=== PATIENT | male | born 1930 | race Caucasian/White ===

== ENCOUNTER 2017-11-30 11:11 | Inpatient (IN) | payer MEDICARE, OTHER ==
[~2017-11-30] VITALS: Ht 172.7 cm; Wt 85.0 kg
[2017-11-30] MEDS ORDERED: VANCOMYCIN 1 G PREMIX 200 ML IV SCH (12:00)
[2017-11-30] MEDS ORDERED: PIPERACILLIN/TAZ 3.375G PREMIX 50 ML IV ONE (12:00)
[2017-11-30] MEDS ORDERED: FUROSEMIDE 40MG/4ML VIAL IVP ONE (12:00)
[2017-11-30] MEDS ORDERED: DOCUSATE SODIUM 100MG CAPSULE PO PRN (12:15)
[2017-11-30] MEDS ORDERED: CLONIDINE 0.1MG TABLET PO PRN (12:15)
[2017-11-30] MEDS ORDERED: ONDANSETRON HCL 4MG/2ML VIAL IV PRN (12:15)
[2017-11-30] MEDS ORDERED: ACETAMINOPHEN 325MG TABLET PO PRN (12:15)
[2017-11-30 12:27] LABS: HEMATOCRIT. 35.6 % (42.0-52.0); HEMOGLOBIN. 11.5 g/dL (14.0-18.0); MEAN CORPUSCULAR HEMOGLOBIN 30.1 pg (28.0-32.0); MEAN CORPUSCULAR VOLUME 92.6 fL (80.0-94.0); MEAN PLATELET VOLUME 9.5 fl (7.4-10.4); PLATELET 105 x1000/uL (130-400); RED BLOOD CELL COUNT 3.84 mill/uL (4.7-6.1); RED CELL DISTRIBUTION WIDTH 16.8 % (11.6-14.6)
[2017-11-30] MEDS ORDERED: TRAMADOL 50MG TABLET PO ONE (12:30)
[2017-11-30 12:33] LABS: CHLORIDE 98 mEq/L (98-107)
[2017-11-30 12:34] LABS: INR 1.4; PARTIAL THROMBOPLASTIN TIME 26.6 sec (23.4-31.0); PROTHROMBIN TIME 14.8 sec (9.4-11.6)
[2017-11-30 12:54] LABS: CREATINE KINASE MB FRACTION 0.9 ng/mL (0.5-3.6)
[2017-11-30 13:07] LABS: PLATELET ESTIMATE SLIGHTLY DECREASED
[2017-11-30 16:40] VITALS: BP 117/76
[2017-11-30] MEDS ORDERED: MORPHINE SULFATE 4 MG/ML CPJ (NOT FOR IM USE) IV PRN (17:32)
[2017-11-30] MEDS: ENOXAPARIN 40MG/0.4ML SYR SUBCUT SCH (19:06)
[2017-11-30] MEDS: FUROSEMIDE 40MG/4ML VIAL IV SCH (19:06)
[2017-11-30] MEDS ORDERED: ASPI-1159 MT (19:16)
[2017-11-30] MEDS ORDERED: FURO-151 MT (19:16)
[2017-11-30] MEDS ORDERED: CARB-32 MT (19:16)
[2017-11-30] MEDS ORDERED: [UNRECOGNIZED DRUG - OTHER] MT SCH (19:30)
[2017-11-30] MEDS ORDERED: CARBIDOPA MT SCH (19:30)
[2017-11-30] MEDS ORDERED: LEVODOPA MT SCH (19:30)
[2017-11-30 20:00] VITALS: BP 111/64
[2017-11-30] MEDS: CARBIDOPA/LEVODOPA 25/100MG TABLET CR PO SCH (22:05)
[2017-11-30] MEDS: PIPERACILLIN/TAZ 3.375G PREMIX 50 ML IV SCH (22:05)
[2017-11-30 22:45] VITALS: BP 111/64
[2017-12-01] VITALS: BP 97/49
[2017-12-01 04:00] VITALS: BP 103/52
[2017-12-01] MEDS: PIPERACILLIN/TAZ 3.375G PREMIX 50 ML IV SCH ×2 (05:15→13:17)
[2017-12-01 05:31] LABS: CLARITY URINE CLEAR (CLEAR); COLOR URINE YELLOW (YELLOW); KETONES URINE NEGATIVE (NEGATIVE); LEUKOCYTE ESTERASE URINE NEGATIVE (NEGATIVE); NITRITE URINE NEGATIVE (NEGATIVE); OCCULT BLOOD URINE NEGATIVE (NEGATIVE); PROTEIN URINE NEGATIVE (NEGATIVE); SPECIFIC GRAVITY URINE 1.012 (1.005-1.030)
[2017-12-01 06:06] LABS: BASOPHILS % 0.4 % (0.0-2.0); EOSINOPHILS % 2.2 % (0.0-5.0); HEMATOCRIT. 34.4 % (42.0-52.0); HEMOGLOBIN. 11.3 g/dL (14.0-18.0); LYMPHOCYTES % 8.3 % (20.0-50.0); MEAN CORPUSCULAR HEMOGLOBIN 30.5 pg (28.0-32.0); MEAN CORPUSCULAR VOLUME 93.3 fL (80.0-94.0); MEAN PLATELET VOLUME 9.5 fl (7.4-10.4); MONOCYTES % 6.8 % (2.0-8.0); NEUTROPHILS % 82.3 % (40.0-76.0); PLATELET 93 x1000/uL (130-400); RED BLOOD CELL COUNT 3.68 mill/uL (4.7-6.1); RED CELL DISTRIBUTION WIDTH 16.7 % (11.6-14.6)
[2017-12-01 06:19] LABS: CHLORIDE 99 mEq/L (98-107)
[2017-12-01] MEDS: CARBIDOPA/LEVODOPA 25/100MG TABLET CR PO SCH ×3 (06:29→22:03)
[2017-12-01] MEDS ORDERED: VANCOMYCIN 750 MG PREMIX 150 ML IV SCH (07:00)
[2017-12-01 08:00] VITALS: BP 110/65
[2017-12-01] MEDS: IPRATROPIUM/ALBUTEROL 0.5-3(2.5)MG/3ML NEB INH SCH ×3 (09:16→19:58)
[2017-12-01] MEDS: POTASSIUM CHLORIDE 20MEQ/PACKET PO SCH ×2 (09:31→17:31)
[2017-12-01] MEDS: FUROSEMIDE 40MG/4ML VIAL IV SCH ×2 (09:31→17:31)
[2017-12-01 12:00] VITALS: BP 100/58
[2017-12-01 16:00] VITALS: BP 94/51
[2017-12-01] MEDS: CEFTRIAXONE 1 G PREMIX 50 ML IV SCH (16:00)
[2017-12-01] MEDS: ENOXAPARIN 40MG/0.4ML SYR SUBCUT SCH (17:31)
[2017-12-01 20:00] VITALS: BP 111/73
[2017-12-01] MEDS ORDERED: PIPERACILLIN/TAZ 3.375G PREMIX 50 ML IV SCH (22:00)
[2017-12-01] MEDS: VANCOMYCIN 1 G PREMIX 200 ML IV SCH (22:03)
[2017-12-02] VITALS: BP 99/63
[2017-12-02] MEDS ORDERED: VANCOMYCIN 750 MG PREMIX 150 ML IV SCH (01:00)
[2017-12-02] MEDS: IPRATROPIUM/ALBUTEROL 0.5-3(2.5)MG/3ML NEB INH SCH ×3 (02:10→20:51)
[2017-12-02 04:00] VITALS: BP 97/67
[2017-12-02] MEDS: CARBIDOPA/LEVODOPA 25/100MG TABLET CR PO SCH ×2 (05:30→14:29)
[2017-12-02 07:08] LABS: BASOPHILS % 0.4 % (0.0-2.0); EOSINOPHILS % 3.2 % (0.0-5.0); HEMATOCRIT. 32.9 % (42.0-52.0); HEMOGLOBIN. 10.9 g/dL (14.0-18.0); LYMPHOCYTES % 7.4 % (20.0-50.0); MEAN CORPUSCULAR HEMOGLOBIN 30.5 pg (28.0-32.0); MEAN CORPUSCULAR VOLUME 91.8 fL (80.0-94.0); MEAN PLATELET VOLUME 9.7 fl (7.4-10.4); MONOCYTES % 9.4 % (2.0-8.0); NEUTROPHILS % 79.6 % (40.0-76.0); PLATELET 97 x1000/uL (130-400); RED BLOOD CELL COUNT 3.58 mill/uL (4.7-6.1); RED CELL DISTRIBUTION WIDTH 16.5 % (11.6-14.6)
[2017-12-02 08:00] VITALS: BP 100/66
[2017-12-02] MEDS: POTASSIUM CHLORIDE 20MEQ/PACKET PO SCH ×2 (09:04→17:06)
[2017-12-02] MEDS: FUROSEMIDE 40MG/4ML VIAL IV SCH ×2 (09:04→17:06)
[2017-12-02 12:00] VITALS: BP 101/66
[2017-12-02] MEDS: CEFTRIAXONE 1 G PREMIX 50 ML IV SCH (15:54)
[2017-12-02 16:00] VITALS: BP 95/59
[2017-12-02] MEDS: ASCORBIC ACID 250 MG TABLET PO SCH (17:06)
[2017-12-02] MEDS: ENOXAPARIN 40MG/0.4ML SYR SUBCUT SCH (17:07)
[2017-12-02 20:00] VITALS: BP 130/70
[2017-12-03] VITALS: BP 146/66
[2017-12-03] MEDS: CARBIDOPA/LEVODOPA 25/100MG TABLET CR PO SCH ×4 (00:31→21:10)
[2017-12-03] MEDS: VANCOMYCIN 1 G PREMIX 200 ML IV SCH ×2 (00:31→21:09)
[2017-12-03] MEDS: IPRATROPIUM/ALBUTEROL 0.5-3(2.5)MG/3ML NEB INH SCH ×4 (02:18→22:04)
[2017-12-03 04:00] VITALS: BP 138/57
[2017-12-03 08:00] VITALS: BP 107/64
[2017-12-03] MEDS: FUROSEMIDE 40MG/4ML VIAL IV SCH ×2 (08:59→17:25)
[2017-12-03] MEDS: POTASSIUM CHLORIDE 20MEQ/PACKET PO SCH (08:59)
[2017-12-03] MEDS: ZINC SULFATE 220 MG ( 50 ) CAPSULE PO SCH (09:00)
[2017-12-03] MEDS: ASCORBIC ACID 250 MG TABLET PO SCH ×2 (09:00→17:25)
[2017-12-03] MEDS: MULTIVITAMINS,THER W-MINERALS TABLET PO SCH (09:00)
[2017-12-03 12:00] VITALS: BP 114/68
[2017-12-03] MEDS: CEFTRIAXONE 1 G PREMIX 50 ML IV SCH (15:30)
[2017-12-03 16:00] VITALS: BP 113/70
[2017-12-03] MEDS: ENOXAPARIN 40MG/0.4ML SYR SUBCUT SCH (17:26)
[2017-12-03 20:00] VITALS: BP 106/62
[2017-12-04] VITALS: BP 101/50
[2017-12-04] MEDS: IPRATROPIUM/ALBUTEROL 0.5-3(2.5)MG/3ML NEB INH SCH ×4 (02:32→21:09)
[2017-12-04 04:00] VITALS: BP 107/67
[2017-12-04 05:35] LABS: BASOPHILS % 0.9 % (0.0-2.0); EOSINOPHILS % 4.2 % (0.0-5.0); HEMATOCRIT. 34.5 % (42.0-52.0); HEMOGLOBIN. 11.3 g/dL (14.0-18.0); LYMPHOCYTES % 10.2 % (20.0-50.0); MEAN CORPUSCULAR HEMOGLOBIN 30.3 pg (28.0-32.0); MEAN CORPUSCULAR VOLUME 92.7 fL (80.0-94.0); MEAN PLATELET VOLUME 9.3 fl (7.4-10.4); NEUTROPHILS % 74.7 % (40.0-76.0); PLATELET 124 x1000/uL (130-400); RED BLOOD CELL COUNT 3.72 mill/uL (4.7-6.1); RED CELL DISTRIBUTION WIDTH 16.9 % (11.6-14.6)
[2017-12-04 05:58] LABS: CHLORIDE 99 mEq/L (98-107)
[2017-12-04] MEDS: CARBIDOPA/LEVODOPA 25/100MG TABLET CR PO SCH ×3 (06:01→21:44)
[2017-12-04 08:00] VITALS: BP 107/67
[2017-12-04] MEDS: ZINC SULFATE 220 MG ( 50 ) CAPSULE PO SCH (08:44)
[2017-12-04] MEDS: FUROSEMIDE 40MG/4ML VIAL IV SCH ×2 (08:44→18:23)
[2017-12-04] MEDS: MULTIVITAMINS,THER W-MINERALS TABLET PO SCH (08:44)
[2017-12-04] MEDS: POTASSIUM CHLORIDE 20MEQ/PACKET PO SCH (08:44)
[2017-12-04] MEDS: ASCORBIC ACID 250 MG TABLET PO SCH ×2 (08:45→18:23)
[2017-12-04 12:00] VITALS: BP 95/65
[2017-12-04] MEDS ORDERED: VANCOMYCIN 1 G PREMIX 200 ML IV SCH (15:00)
[2017-12-04 16:00] VITALS: BP 99/58
[2017-12-04] MEDS: ENOXAPARIN 40MG/0.4ML SYR SUBCUT SCH (18:24)
[2017-12-04 20:00] VITALS: BP 116/72
[2017-12-05] VITALS: BP 121/68
[2017-12-05] MEDS: IPRATROPIUM/ALBUTEROL 0.5-3(2.5)MG/3ML NEB INH SCH ×4 (03:04→20:26)
[2017-12-05 04:00] VITALS: BP 118/65
[2017-12-05] MEDS: CARBIDOPA/LEVODOPA 25/100MG TABLET CR PO SCH ×3 (05:35→21:31)
[2017-12-05 05:44] LABS: BASOPHILS % 0.9 % (0.0-2.0); EOSINOPHILS % 3.7 % (0.0-5.0); HEMATOCRIT. 31.1 % (42.0-52.0); HEMOGLOBIN. 10.5 g/dL (14.0-18.0); LYMPHOCYTES % 10.4 % (20.0-50.0); MEAN CORPUSCULAR HEMOGLOBIN 30.7 pg (28.0-32.0); MEAN CORPUSCULAR VOLUME 91.1 fL (80.0-94.0); MEAN PLATELET VOLUME 8.9 fl (7.4-10.4); MONOCYTES % 10.4 % (2.0-8.0); NEUTROPHILS % 74.6 % (40.0-76.0); PLATELET 119 x1000/uL (130-400); RED BLOOD CELL COUNT 3.41 mill/uL (4.7-6.1); RED CELL DISTRIBUTION WIDTH 16.7 % (11.6-14.6)
[2017-12-05 06:17] LABS: CHLORIDE 100 mEq/L (98-107)
[2017-12-05 08:00] VITALS: BP 113/65
[2017-12-05] MEDS: MULTIVITAMINS,THER W-MINERALS TABLET PO SCH (09:48)
[2017-12-05] MEDS: ZINC SULFATE 220 MG ( 50 ) CAPSULE PO SCH (09:48)
[2017-12-05] MEDS: POTASSIUM CHLORIDE 20MEQ/PACKET PO SCH (09:48)
[2017-12-05] MEDS: ASCORBIC ACID 250 MG TABLET PO SCH ×2 (09:48→17:55)
[2017-12-05] MEDS: FUROSEMIDE 40MG/4ML VIAL IV SCH ×2 (09:48→17:55)
[2017-12-05 12:00] VITALS: BP 93/54
[2017-12-05 16:00] VITALS: BP 110/74
[2017-12-05] MEDS: ENOXAPARIN 40MG/0.4ML SYR SUBCUT SCH (17:56)
[2017-12-05 20:00] VITALS: BP 112/77
[2017-12-06] VITALS (7 sets, daily range): BP systolic 103–128; BP diastolic 68–81
[2017-12-06] MEDS: IPRATROPIUM/ALBUTEROL 0.5-3(2.5)MG/3ML NEB INH SCH ×3 (02:01→12:06)
[2017-12-06] MEDS: CARBIDOPA/LEVODOPA 25/100MG TABLET CR PO SCH ×2 (06:18→15:18)
[2017-12-06] MEDS: MULTIVITAMINS,THER W-MINERALS TABLET PO SCH (09:09)
[2017-12-06] MEDS: ZINC SULFATE 220 MG ( 50 ) CAPSULE PO SCH (09:09)
[2017-12-06] MEDS: POTASSIUM CHLORIDE 20MEQ/PACKET PO SCH (09:09)
[2017-12-06] MEDS: ASCORBIC ACID 250 MG TABLET PO SCH ×2 (09:10→17:37)
[2017-12-06] MEDS: FUROSEMIDE 40MG/4ML VIAL IV SCH (09:10)
[2017-12-06] MEDS: ENOXAPARIN 40MG/0.4ML SYR SUBCUT SCH (17:37)
[2017-12-06] MEDS ORDERED: FUROSEMIDE 40MG TABLET PO SCH (21:00)
== END 2017-12-06 20:24 | DRG 602 ==
LOC: ER 11:12 → 5WST 12:14 → EDBEDREQ 12:16 → ER 12:23 → ENRESERV 15:52 → CANRESERV 15:52
PROVIDERS: ADMIT Internal Medicine Nephrology; ATTEND Internal Medicine Nephrology
DX: L03.115 Cellulitis of right lower limb (principal); I50.23 Acute on chronic systolic (congestive) heart failure; E46 Unspecified protein-calorie malnutrition; N17.9 Acute kidney failure, unspecified; E87.2 Acidosis; D68.9 Coagulation defect, unspecified; I42.9 Cardiomyopathy, unspecified; R65.10 Systemic inflammatory response syndrome (SIRS) of non-infectious origin without acute organ dysfunction; L03.116 Cellulitis of left lower limb; E87.6 Hypokalemia; D64.9 Anemia, unspecified; D69.6 Thrombocytopenia, unspecified; I11.0 Hypertensive heart disease with heart failure; G20 Parkinson's disease; D72.829 Elevated white blood cell count, unspecified; Z91.19 Patient's noncompliance with other medical treatment and regimen; Z68.28 Body mass index [BMI] 28.0-28.9, adult
CPT/HCPCS: 36415; 71045; 76700; 80048; 80053; 80061; 80202; 81003; 82550; 82553; 83605; 83735; 83880; 84100; 84443; 84484; 85025; 85610; 85730; 87040; 87086; 93005; 93306; 93970; 94640; 96365; 96366; 96367; 96375; 97162; 97166; 97530; 97535; 99291; J0696; J1650; J1940; J2543; J3370; J7040; J7620